=== PATIENT | female | born 1980 | race Caucasian/White ===

== ENCOUNTER 2020-06-26 10:28 | Emergency (ER) | payer OTHER ==
[~2020-06-26] VITALS: Ht 167.6 cm; Wt 77.7 kg
[2020-06-26 10:35] VITALS: BP 130/79
[2020-06-26] MEDS ORDERED: BUPIVACAINE MPF 0.5% 30 ML VIAL. SQ ONE (10:45)
--- NOTE | 2020-06-26 10:46 | PHYS DOC ---
General Adult EDM: Chief Complaint: LACERATION/AVULSION HPI: HPI: Patient is a 40-year-old female who presented to ER for evaluation of right finger laceration. Patient said about 30 minutes ago she woke doing dishes , a piece of broken glass cut her right fingers. Patient is not sure when was the last time she had a tetanus shot. Review of Systems: Review of Systems: Constitutional: Denies fever or chills Eyes: Denies change in visual acuity HENT: Denies nasal congestion or sore throat Respiratory: Denies cough or shortness of breath Cardiovascular: Denies chest pain or edema GI: Denies abdominal pain, nausea, vomiting, bloody stools or diarrhea : Denies dysuria Musculoskeletal: Denies back pain or joint pain Integument: Positive for laceration Neurologic: Denies headache, focal weakness or sensory changes Endocrine: Denies polyuria or polydipsia Lymphatic: Denies swollen glands Psychiatric: Denies depression or anxiety Current Medications: Current Meds: Current Medications Medications (Trade) Dose Ordered Sig/Dutch Start Time Stop Time Status Last Admin Dose Admin Bupivacaine HCl (Sensorcaine Mpf 0.5%) 30 ml 1X ONCE 06/26/20 10:45 06/26/20 10:46 UNV 06/26/20 10:42 30 ML Allergies: Allergies: Allergies Coded Allergies Type Severity Reaction Last Updated Verified codeine Allergy Unknown 06/26/20 Yes Physical Exam: PE: Constitutional: Well developed, well nourished, no acute distress, non-toxic appearance. [] HENT: Normocephalic, atraumatic, bilateral external ears normal, oropharynx moist, no oral exudates, nose normal. [] Eyes: PERRLA, EOMI, conjunctiva normal, no discharge. [] Neck: Normal range of motion, no tenderness, supple, no stridor. [] Cardiovascular:Heart rate regular rhythm, no murmur [] Lungs & Thorax: Bilateral breath sounds clear to auscultation [] Abdomen: Bowel sounds normal, soft, no tenderness, no masses, no pulsatile masses. [] Skin: Warm, dry, 1.5 cm laceration on the volar surface of right 2nd finger, not crossing joint, no tendon laceration, patient can flex and extend finger without any problem, no active bleeding. 2 cm laceration on the volar surface of right 4th finger crossing the PIP joint, no tendon injury, no active bleeding. Patient can flex and extend finger without any problem. Back: No tenderness, no CVA tenderness. [] Extremities: No tenderness, no cyanosis, no clubbing, ROM intact, no edema. [] Neurologic: Alert and oriented X 3, normal motor function, normal sensory function, no focal deficits noted. [] Psychologic: Affect normal, judgement normal, mood normal. [] EKG: EKG: [] Radiology/Procedures: Radiology/Procedures: Laceration Procedure #1 Location: right 4th finger Anesthesia: marcaine . 5% 8 ml digital block, webspace. total lenght of laceration:2 cm Number of sutures: 4 Suture Material: 3-0-nylon Technique: simple interruptous. Patient tolerated procedure well. The wound was dressed with:nonstick gauze, aluminun finger splint. Laceration Procedure # 2 Location: right 2nd finger Anesthesia: marcaine .5%, digital block, webspace, 6 ml. total lenght of laceration: 1.5 cm Number of sutures:3 Suture Material: 3-0-nylon Technique: simple interrouptus. Patient tolerated procedure well. The wound was dressed with: nonstick gauze Heart Score: Risk Factors: Risk Factors: DM, Current or recent (<one month) smoker, HTN, HLP, family history of CAD, obesity. Risk Scores: Score 0 - 3: 2.5% MACE over next 6 weeks - Discharge Home Score 4 - 6: 20.3% MACE over next 6 weeks - Admit for Clinical Observation Score 7 - 10: 72.7% MACE over next 6 weeks - Early Invasive Strategies Course & Med Decision Making: Course & Med Decision Making Pertinent Labs and Imaging studies reviewed. (See chart for details) Lacerations were repaired with sutures, will keep the sutures in for 12 days due to crossing joint, aluminum finger splint was applied to right 4th finger. Rejion Disclaimer: Kady Disclaimer: This electronic medical record was generated, in whole or in part, using a voice recognition dictation system. Departure Departure: Impression: Primary Impression: Finger laceration Disposition: 01 DC HOME SELF CARE/HOMELESS Condition: STABLE Referrals: MARY ANN NIETO DO (PCP) follow up with your doctor iin 12 days for sutures removal Patient Instructions: Laceration Care, Adult, VIS, Tetanus, Diphtheria (Td); Tetanus, Diphtheria, Pertussis (Tdap) - CDC Scripts Cephalexin (KEFLEX) 500 Mg Capsule 1 CAP PO TID for laceration for 5 Days, #15 CAP 0 Refills Prov: KURTIS PADILLA DO 06/26/20 KURTIS PADILLA DO Jun 26, 2020 10:45
[2020-06-26] MEDS ORDERED: DIPH,PERTUSS(ACELL),TET VAC/PF 0.5 ML SYRINGE. VAX IM ONE (11:00)
[2020-06-26] MEDS ORDERED: CEPH-264 PO (11:21)
== END 2020-06-26 11:25 | disposition home or self-care (01) ==
LOC: ER 10:28
DX: S61.214A Laceration without foreign body of right ring finger without damage to nail, initial encounter (principal); S61.210A Laceration without foreign body of right index finger without damage to nail, initial encounter; Z88.5 Allergy status to narcotic agent; W25.XXXA Contact with sharp glass, initial encounter; Y93.89 Activity, other specified; Y92.89 Other specified places as the place of occurrence of the external cause; Y99.8 Other external cause status
CPT/HCPCS: 12002; 90471; 90715; 99283; J3490

== ENCOUNTER 2020-09-15 12:50 | Emergency (ER) | payer OTHER ==
[~2020-09-15] VITALS: Ht 165.1 cm; Wt 75.0 kg
[~2020-09-15 12:50] MED LIST: CEPH-264 PO
--- NOTE | 2020-09-15 14:13 | PHYS DOC ---
Past History Past Medical History: Cancer, Other (CORY CAMARGO APRN) Past Surgical History: Appendectomy, Hip Replacement, Other Additional Past Surgical Histo: RIGHT HIP, RIGHT 5TH FINGER (CORY CAMARGO APRN) Alcohol Use: None (CORY CAMARGO APRN) Adult General Chief Complaint Chief Complaint: SHORTNESS OF BREATH [facility] HPI Patient is a 40-year-old female patient who presents with worsening dyspnea and a recent Covid diagnosis 8 day ago. Patient reports she has an increase in shortness breath of the last 3 days, the point where anytime she takes a couple steps are you try to put her shoes on she feels out of breath. States she is normally quite active, runs, and swims. States no prior medical history. Reports she had lost her sense of smell and taste, has started to regain her sense of smell again. States she had some previous body aches and fever, however she has not had this anymore. Denies any fever for the last 2 days as this had resolved. She feels she has had little bit of a cough and has discharged a previous little bit of mucus over the last day. She contacted her primary care provider, and was advised to come to the emergency room for evaluation. (CORY CAMARGO APRN) Review of Systems Review of Systems Constitutional: Denies fever or chills [] however does report she had fever recently, but none in the last 2 days Eyes: Denies change in visual acuity, redness, or eye pain [] HENT: Denies nasal congestion or sore throat [] reports recent loss of taste and smell, however she is starting to smell a few things again. Respiratory: [] Reports cough and shortness of breath, reports shortness with asthma getting worse the last few days Cardiovascular: No additional information not addressed in HPI [] GI: Denies abdominal pain, nausea, vomiting, bloody stools or diarrhea [] : Denies dysuria or hematuria [] Musculoskeletal: Denies back pain or joint pain [] reports prior body aches, however this is improved Integument: Denies rash or skin lesions [] Neurologic: Denies headache, focal weakness or sensory changes [] Endocrine: Denies polyuria or polydipsia [] All other systems were reviewed and found to be within normal limits, except as documented in this note. (CORY CAMARGO APRN) Allergies Allergies Allergies Coded Allergies Type Severity Reaction Last Updated Verified codeine Allergy Unknown 06/26/20 Yes (CORY CAMARGO APRN) Physical Exam Physical Exam Constitutional: Well developed, well nourished, no acute distress, non-toxic appearance. [] HENT: Normocephalic, atraumatic, bilateral external ears normal, oropharynx moist, no oral exudates, nose normal. [] Tonsils 0+. Oropharynx moist. Eyes: PERRLA, EOMI, conjunctiva normal, no discharge. [] Neck: Normal range of motion, no tenderness, supple, no stridor. [] Cardiovascular:Heart rate regular rhythm, no murmur [] Lungs & Thorax: Bilateral breath sounds clear to auscultation [] occasional coughing noted. Abdomen: Bowel sounds normal, soft, no tenderness, no masses, no pulsatile masses. [] Skin: Warm, dry, no erythema, no rash. [] Back: No tenderness, no CVA tenderness. [] Extremities: No tenderness, no cyanosis, no clubbing, ROM intact, no edema. [] Negative Homans' sign Neurologic: Alert and oriented X 3, normal motor function, normal sensory function, no focal deficits noted. [] Psychologic: Affect normal, judgement normal, mood normal. [] (CORY CAMARGO APRN) Current Patient Data Vital Signs Vital Signs Date Time Temp Pulse Resp B/P (MAP) Pulse Ox O2 Delivery O2 Flow Rate FiO2 09/15/20 13:23 98.6 70 18 109/74 (86) 98 Room Air (CORY CAMARGO APRN) EKG EKG [] (CORY CAMARGO APRN) Radiology/Procedures Radiology/Procedures REASON: SOA, COVID + PROCEDURE: CHEST AP ONLY EXAM: XR CHEST 1V 09/15/2020 2:14 PM CLINICAL INDICATION: Shortness of breath, Covid positive COMPARISON: None TECHNIQUE: AP upright view of the chest FINDINGS: The heart and mediastinum are normal. Lungs are well-expanded and clear. No consolidation, pleural effusion, or pneumothorax. Pulmonary vascularity is normal. The thoracic skeleton is intact. IMPRESSION: Normal chest radiograph. Electronically signed by: Esther Gallegos MD (09/15/2020 2:34 PM) [id number] DICTATED AND SIGNED BY: ESTHER GALLEGOS MD DATE: 09/15/20 1434 CC: CORY CAMARGO APRN; MARY ANN NIETO DO ~MTH0 0[] (CORY CAMARGO APRN) Heart Score Risk Factors: Risk Factors: DM, Current or recent (<one month) smoker, HTN, HLP, family history of CAD, obesity. Risk Scores: Risk Factors: DM, Current or recent (<one month) smoker, HTN, HLP, family history of CAD, obesity. (CORY CAMARGO APRN) Course & Med Decision Making Course & Med Decision Making Pertinent Labs and Imaging studies reviewed. (See chart for details) []Maintaining SpO2 96% on room air Patient remains resting in room at this time. Conversational, no hypoxia, SpO2 100% on room air. In agreement with plan for discharge, continue isolation. Will provide Rx for steroids, recommend Guaifenasin, which she has at home. Plan to follow up with PCP (CORY CAMARGO APRN) Dragon Disclaimer Dragon Disclaimer This electronic medical record was generated, in whole or in part, using a voice recognition dictation system. (CORY CAMARGO APRN) Departure Departure: Impression: Primary Impression: COVID-19 Additional Impression: Dyspnea Disposition: 01 DC HOME SELF CARE/HOMELESS Condition: STABLE Referrals: MARY ANN NIETO DO (PCP) Patient Instructions: Shortness of Breath, [id number] Additional Instructions: As we discussed, continue to take the steroids as prescribed. Start taking Mucinex or similar product containing Guaifenesin which will help break up the mucous in your chest. Take this per the package directions. Increase your fluid intake. When you are out of your quarantine, you may slowly start resuming your physical activity, however do not overexert yourself as your lungs are likely still going to be inflammed. Scripts Dexamethasone (DEXAMETHASONE) 4 Mg Tablet 4 TAB PO DAILY for COVID, #7 TAB Prov: CORY CAMARGO APRN 09/15/20 Attending Co-Sign Attending Co-Sign I was personally available for consult in the emergency department. I have reviewed the chart and agree with the documentation as recorded by the JUVENCIO including the assessment, treatment plan and disposition. (JULIAN MERCADO DO) Problem Qualifiers Additional Impression: Dyspnea Dyspnea type: dyspnea on exertion Qualified Codes: R06.00 - Dyspnea, unspecified CORY CAMARGO APRN Sep 15, 2020 14:13 JULIAN MERCADO DO Sep 15, 2020 17:08
[2020-09-15] MEDS ORDERED: DEXAMETHASONE 4 MG TABLET PO ONE (14:15)
--- NOTE | 2020-09-15 14:36 | RAD ---
EXAM: XR CHEST 1V 09/15/2020 2:14 PM CLINICAL INDICATION: Shortness of breath, Covid positive COMPARISON: None TECHNIQUE: AP upright view of the chest FINDINGS: The heart and mediastinum are normal. Lungs are well-expanded and clear. No consolidatio n, pleural effusion, or pneumothorax. Pulmonary vascularity is normal. The thoracic skeleton is int act. IMPRESSION: Normal chest radiograph. Electronically signed by: Esther Gallegos MD (09/15/2020 2:34 PM) [id number]
[2020-09-15 14:40] LABS: BASO % 0 % (0-3); EOS % 0 % (0-3); HEMOGLOBIN 13.2 g/dL (12.0-15.5); LYMPH # 2.1 x10^3/uL (1.0-4.8); LYMPH % 36 % (24-48); MEAN CORPUSCULAR HEMOGLOBIN 31 pg (25-35); MEAN CORPUSCULAR HGB CONC 34 g/dL (31-37); MEAN CORPUSCULAR VOLUME 90 fL (79-100); MONO # 0.5 x10^3/uL (0.0-1.1); MONO % 9 % (0-9); NEUT # 3.2 x10^3uL (1.8-7.7); NEUT % 55 % (31-73); PLATELET COUNT 224 x10^3/uL (140-400); RED BLOOD COUNT 4.31 x10^6/uL (3.50-5.40); RED CELL DISTRIBUTION WIDTH 11.9 % (11.5-14.5); WHITE BLOOD COUNT 5.9 x10^3/uL (4.0-11.0)
[2020-09-15 14:56] LABS: CALCIUM 8.3 mg/dL (8.5-10.1); CREATININE 0.8 mg/dL (0.6-1.0); GFR 78.7; POTASSIUM 3.7 mmol/L (3.5-5.1)
[2020-09-15 15:02] LABS: ALBUMIN 3.4 g/dL (3.4-5.0); ALBUMIN/GLOBULIN RATIO 0.9 (1.0-1.7); TOTAL BILIRUBIN 0.2 mg/dL (0.2-1.0); TOTAL PROTEIN 7.3 g/dL (6.4-8.2)
[2020-09-15] MEDS ORDERED: DEXA4TAB PO (15:57)
[2020-09-15 16:11] VITALS: BP 110/57
== END 2020-09-15 16:07 | disposition home or self-care (01) ==
LOC: ER 12:50
DX: U07.1 COVID-19 (principal); R06.00 Dyspnea, unspecified; Z88.5 Allergy status to narcotic agent
CPT/HCPCS: 36415; 71045; 80053; 85025; 99284; J8540